=== PATIENT | female | born 1985 | race Caucasian/White ===

== ENCOUNTER → 2019-05-22 | Outpatient (CLI) | payer BC, OTHER ==
[~2019-05-22] VITALS: Ht 166.4 cm; Wt 121.8 kg
[~2019-05-22] MED LIST: BARIATRIC ADVANTAGE PO; BYSTOLIC20 MG PO; DESYREL 50MG50 MG PO; HCTZ 25MG TAB25 MG PO; LO LOESTRIN FE1 TAB PO; VITAMIN B125000 MCG SL; ZYRTEC 10MG10 MG PO
[2019-05-22 15:31] VITALS: BP 136/70; PULSE 70
== END ==
LOC: LIGHT 13:37
DX: I10 Essential (primary) hypertension (principal); M54.5 Low back pain; F31.81 Bipolar II disorder; E66.01 Morbid (severe) obesity due to excess calories; Z68.41 Body mass index [BMI] 40.0-44.9, adult; Z71.3 Dietary counseling and surveillance
CPT/HCPCS: G0463

== ENCOUNTER → 2019-06-05 | Outpatient (CLI) | payer BC, OTHER | LOC: LIGHT 10:44 | DX: I10 Essential (primary) hypertension (principal); M54.5 Low back pain; F32.9 Major depressive disorder, single episode, unspecified; E66.01 Morbid (severe) obesity due to excess calories; Z68.42 Body mass index [BMI] 45.0-49.9, adult; Z71.3 Dietary counseling and surveillance ==

== ENCOUNTER → 2019-06-11 | Outpatient (CLI) | payer BC, OTHER | LOC: LIGHT 14:38 | DX: I10 Essential (primary) hypertension (principal); M54.5 Low back pain; F32.9 Major depressive disorder, single episode, unspecified; E66.01 Morbid (severe) obesity due to excess calories; Z68.41 Body mass index [BMI] 40.0-44.9, adult; Z71.3 Dietary counseling and surveillance ==

== ENCOUNTER → 2019-06-28 | Outpatient (CLI) | payer BC, OTHER ==
[~2019-06-28] VITALS: Ht 166.4 cm; Wt 119.1 kg
[2019-06-28 16:38] VITALS: BP 126/80; PULSE 64
== END ==
LOC: LIGHT 08:31
DX: I10 Essential (primary) hypertension (principal); M54.5 Low back pain; F32.9 Major depressive disorder, single episode, unspecified; E66.01 Morbid (severe) obesity due to excess calories; Z68.41 Body mass index [BMI] 40.0-44.9, adult; Z71.3 Dietary counseling and surveillance
CPT/HCPCS: G0463

== ENCOUNTER → 2019-09-06 | Outpatient (CLI) | payer BC, OTHER ==
[~2019-09-06] VITALS: Ht 166.4 cm; Wt 117.0 kg
[~2019-09-06] MED LIST changes: -BARIATRIC ADVANTAGE PO; +WOMEN'S DAILY1 TAB PO
[2019-09-06 16:40] VITALS: BP 142/74; PULSE 64
== END ==
LOC: LIGHT 08-02 14:49
DX: I10 Essential (primary) hypertension (principal); M54.5 Low back pain; E66.01 Morbid (severe) obesity due to excess calories; Z68.42 Body mass index [BMI] 45.0-49.9, adult; Z71.3 Dietary counseling and surveillance; F41.1 Generalized anxiety disorder
CPT/HCPCS: G0463